=== PATIENT | male | born 1990 | race Two or more races ===

== ENCOUNTER 2019-01-28 18:56 | Emergency (ER) | payer BC ==
[2019-01-28] MEDS ORDERED: Sodium Chloride 0.9% 1,000 ML IV ONE (19:24)
[2019-01-28] MEDS ORDERED: Codeine/Promethazine 10-6.25 MG/5 ML Syrup 5 ML UD Cup PO STA (19:24)
--- NOTE | 2019-01-28 19:24 | EDM.PDOC ---
ED HPI GENERAL MEDICAL PROBLEM - General Chief Complaint: Respiratory Problem Stated Complaint: PT HAS DIFFICULTY BREATHING Time Seen by Provider: 01/28/19 19:16 Source of Information: Reports: Patient History Limitations: Reports: No Limitations - History of Present Illness INITIAL COMMENTS - FREE TEXT/NARRATIVE: HISTORY AND PHYSICAL: History of present illness: Patient is a 29-year-old male who presents to the emergency room today with complaints of productive cough, generalized fatigue, diarrhea and nausea 1 week. He states that multiple coworkers have been sick and is concerned he has been exposed. Patient has had subjective fever and states he feels like he is "getting night sweats" over the past 2-3 days. Patient denies any headache, change in vision, syncope or near syncope. Denies any chest pain, back pain, shortness of breath. Denies any abdominal pain, vomiting, constipation or dysuria. Has not noted any blood in urine or stool. Patient has been eating and drinking appropriately. No previous history of any respiratory illness ( childhood asthma) and he does not smoke. Review of systems: As per history of present illness and below otherwise all systems reviewed and negative. Past medical history: As per history of present illness and as reviewed below otherwise noncontributory. Surgical history: As per history of present illness and as reviewed below otherwise noncontributory. Social history: See social history for further information Family history: As per history of present illness and as reviewed below otherwise noncontributory. Physical exam: General: Well-developed and well-nourished 29-year-old male. Alert and oriented. Nontoxic appearing and in no acute distress. Vital signs have been reviewed by me, he does have a fever with tachycardia/tachypnea. HEENT: Atraumatic, normocephalic, pupils equal and reactive bilaterally, negative for conjunctival pallor or scleral icterus, mucous membranes moist, TMs normal bilaterally, throat clear, neck supple, nontender, trachea midline. No drooling or trismus noted. No meningeal signs. No hot potato voice noted. Lungs: Diminished bases otherwise clear to auscultation, breath sounds equal bilaterally, chest nontender. Loose productive cough is noted Heart: S1S2, regular rate and rhythm without overt murmur Abdomen: Soft, nondistended, nontender. Negative for masses or hepatosplenomegaly. Negative for costovertebral tenderness. Pelvis: Stable nontender. Skin: Intact, warm, dry. No lesions or rashes noted. Extremities: Atraumatic, moves all extremities per self without difficulty or deficits, negative for cords or calf pain. Neurovascular unremarkable. Neuro: Awake, alert, oriented. Cranial nerves II through XII unremarkable. Cerebellum unremarkable. Motor and sensory unremarkable throughout. Exam nonfocal. Notes: Due to patient's vital signs they will have labs being drawn at this time Patient does have an elevated WBC. CXR shows bronchial wall thickening with minimal reticular nodular prominence in the hilar regions suggestive of a bronchitis/bronchiolitis. Due to patient's symptoms will treat for pneumonia. All findings were shared with the patient and at bedside. Admission was offered. Risks versus benefits were reviewed and discussed with patient and . He would like to be discharged to home and accepts risks of discharge. He states he'll return to the emergency room if his symptoms do not improve or new symptoms develop. Otherwise he states he'll follow-up with the primary care provider tomorrow. Home medications were reviewed and discussed with patient. Encouraged him to drink plenty of fluids and get plenty of rest. May start medications tomorrow. Diagnostics: Influenza, strep screening, 2 view chest Therapeutics: IV fluids, Rocephin, Solu-Medrol, Tylenol Rx: Levaquin 750mg x 5 days Medrol Dosepak Pro-Air Impression: Pneumonia Plan: 1. If at anytime if symptoms become worse, new symptoms develop or you change your mind on admission - please return to the emergency room 2. Fill your prescriptions and take as directed. You may start the antibiotic orally tomorrow. 3. Please follow-up with your her very care provider for reevaluation in the next 24-48 hours. 4. Increase her fluids to prevent dehydration (fever and high pulse can cause you to become dehydrated). 5. Return to the ED as needed and as discussed. Definitive disposition and diagnosis as appropriate pending reevaluation and review of above. - Related Data Allergies Allergy/AdvReac Type Severity Reaction Status Date / Time No Known Allergies Allergy Verified 01/28/19 19:31 Home Meds: Home Meds . [No Known Home Meds] 01/28/19 [History] ED ROS GENERAL - Review of Systems Review Of Systems: ROS reveals no pertinent complaints other than HPI. ED EXAM, GENERAL - Physical Exam Exam: See Below (See dictation) Course - Vital Signs Last Recorded V/S: Last Vital Signs Temp 100.4 F 01/28/19 20:29 Pulse 116 H 01/28/19 20:29 Resp 30 H 01/28/19 20:29 BP 164/91 H 01/28/19 19:18 Pulse Ox 93 L 01/28/19 20:29 - Orders/Labs/Meds Orders: Active Orders 24 hr Category Date Time Status RT Aerosol Therapy [RC] ASDIRECTED Care 01/28/19 20:08 Active CULTURE BLOOD [BC] Stat Lab 01/28/19 19:40 Received CULTURE BLOOD [] Stat Lab 01/28/19 19:50 Results CULTURE STREP A CONFIRMATION [] Stat Lab 01/28/19 19:15 Results STREP SCRN A RAPID W CULT CONF [] Stat Lab 01/28/19 19:15 Results Acetaminophen [Tylenol Extra Strength] Med 01/28/19 21:15 Once 1,000 mg PO ONETIME ONE methylPREDNISolone Sod Succ [Solu-MEDROL] Med 01/28/19 21:15 Once 125 mg IVPUSH ONETIME ONE Blood Culture x2 Reflex Set [OM.PC] Stat Oth 01/28/19 19:25 Ordered Labs: Laboratory Tests 01/28/19 01/28/19 Range/Units 19:40 19:40 WBC 14.29 H (4.0-11.0) K/uL RBC 5.08 (4.50-5.90) M/uL Hgb 15.9 (13.0-17.0) g/dL Hct 45.7 (38.0-50.0) % MCV 90.0 (80.0-98.0) fL MCH 31.3 (27.0-32.0) pg MCHC 34.8 (31.0-37.0) g/dL RDW Std Deviation 39.0 (28.0-62.0) fl RDW Coeff of Alycia 12 (11.0-15.0) % Plt Count 253 (150-400) K/uL MPV 9.80 (7.40-12.00) fL Neut % (Auto) 78.6 (48.0-80.0) % Lymph % (Auto) 10.4 L (16.0-40.0) % [place] % (Auto) 7.3 (0.0-15.0) % Eos % (Auto) 3.4 (0.0-7.0) % Baso % (Auto) 0.3 (0.0-1.5) % Neut # (Auto) 11.3 H (1.4-5.7) K/uL Lymph # (Auto) 1.5 (0.6-2.4) K/uL [place] # (Auto) 1.0 H (0.0-0.8) K/uL Eos # (Auto) 0.5 (0.0-0.7) K/uL Baso # (Auto) 0.0 (0.0-0.1) K/uL Nucleated RBC % 0.0 /100WBC Nucleated RBCs # 0 K/uL Sodium 137 (136-148) mmol/L Potassium 3.9 (3.5-5.1) mmol/L Chloride 99 (98-107) mmol/L Carbon Dioxide 25.7 (21.0-32.0) mmol/L BUN 10 (7.0-18.0) mg/dL Creatinine 1.1 (0.8-1.3) mg/dL Est Cr Clr Drug Dosing TNP Estimated GFR (MDRD) > 60.0 ml/min Glucose 107 H (74-106) mg/dL Calcium 8.7 (8.5-10.1) mg/dL Total Bilirubin 0.7 (0.2-1.0) mg/dL AST 25 (15-37) IU/L ALT 33 (14-63) IU/L Alkaline Phosphatase 107 (46-116) U/L Total Protein 8.7 H (6.4-8.2) g/dL Albumin 3.6 (3.4-5.0) g/dL Globulin 5.1 H (2.6-4.0) g/dL Albumin/Globulin Ratio 0.7 L (0.9-1.6) Meds: Medications Discontinued Medications Generic Name Dose Route Start Last Admin Trade Name Freq PRN Reason Stop Dose Admin Albuterol/Ipratropium 3 ml 01/28/19 20:07 01/28/19 20:28 Duoneb 3.0-0.5 Mg/3 Ml NEB 01/28/19 20:08 3 ml ONETIME ONE Administration Sodium Chloride 1,000 mls @ 999 mls/hr 01/28/19 19:24 01/28/19 19:52 Normal Saline IV 01/28/19 20:24 999 mls/hr STAT ONE Administration Ceftriaxone Sodium/Dextrose 1 50 mls @ 100 mls/hr 01/28/19 19:53 01/28/19 20: 27 gm/ Premix IV 01/28/19 20:22 100 mls/hr ONETIME ONE Administration Promethazine HCl/Codeine 10 ml 01/28/19 19:24 01/28/19 19:52 Phenergan With Codeine PO 01/28/19 19:25 10 ml NOW STA Administration Departure - Departure Time of Disposition: 21:13 Disposition: Home, Self-Care 01 Clinical Impression: Pneumonia Qualifiers: Pneumonia type: due to unspecified organism Laterality: bilateral Lung location : unspecified part of lung Qualified Code(s): J18.9 - Pneumonia, unspecified organism - Discharge Information Instructions: Community-Acquired Pneumonia, Adult, [id number] Referrals: PCP,None [Primary Care Provider] - Forms: ED Department Discharge Additional Instructions: The following information is given to patients seen in the emergency department who are being discharged to home. This information is to outline your options for follow-up care. We provide all patients seen in our emergency department with a follow-up referral. The need for follow-up, as well as the timing and circumstances, are variable depending upon the specifics of your emergency department visit. If you don't have a primary care physician on staff, we will provide you with a referral. We always advise you to contact your personal physician following an emergency department visit to inform them of the circumstance of the visit and for follow-up with them and/or the need for any referrals to a consulting specialist. The emergency department will also refer you to a specialist when appropriate. This referral assures that you have the opportunity for follow-up care with a specialist. All of these measure are taken in an effort to provide you with optimal care, which includes your follow-up. Under all circumstances we always encourage you to contact your private physician who remains a resource for coordinating your care. When calling for follow-up care, please make the office aware that this follow-up is from your recent emergency room visit. If for any reason you are refused follow-up, please contact the [facility] Emergency Department at and asked to speak to the emergency department charge nurse. MINI [facility] [address] [place] [address] [facility] [address] [place] [address] 1. If at anytime if symptoms become worse, new symptoms develop or you change your mind on admission - please return to the emergency room 2. Fill your prescriptions and take as directed. You may start the antibiotic orally tomorrow. 3. Please follow-up with your her very care provider for reevaluation in the next 24-48 hours. 4. Increase her fluids to prevent dehydration (fever and high pulse can cause you to become dehydrated). 5. Return to the ED as needed and as discussed. - My Orders Last 24 Hours: My Active Orders 01/28/19 19:15 CULTURE STREP A CONFIRMATION [RM] Stat STREP SCRN A RAPID W CULT CONF [RM] Stat 01/28/19 19:25 Blood Culture x2 Reflex Set [OM.PC] Stat 01/28/19 19:40 CULTURE BLOOD [BC] Stat 01/28/19 19:50 CULTURE BLOOD [BC] Stat 01/28/19 20:08 RT Aerosol Therapy [RC] ASDIRECTED 01/28/19 21:15 Acetaminophen [Tylenol Extra Strength] 1,000 mg PO ONETIME ONE methylPREDNISolone Sod Succ [Solu-MEDROL] 125 mg IVPUSH ONETIME ONE - Assessment/Plan Last 24 Hours: My Active Orders 01/28/19 19:15 CULTURE STREP A CONFIRMATION [RM] Stat STREP SCRN A RAPID W CULT CONF [RM] Stat 01/28/19 19:25 Blood Culture x2 Reflex Set [OM.PC] Stat 01/28/19 19:40 CULTURE BLOOD [BC] Stat 01/28/19 19:50 CULTURE BLOOD [BC] Stat 01/28/19 20:08 RT Aerosol Therapy [RC] ASDIRECTED 01/28/19 21:15 Acetaminophen [Tylenol Extra Strength] 1,000 mg PO ONETIME ONE methylPREDNISolone Sod Succ [Solu-MEDROL] 125 mg IVPUSH ONETIME ONE
[2019-01-28] MEDS ORDERED: cefTRIAXone 1 GM in Premix Bag 1 BAG IV ONE (19:53)
[2019-01-28] MEDS ORDERED: Albuterol/Ipratropium 3.0-0.5 MG/3 ML Neb Soln NEB ONE (20:07)
[2019-01-28 20:13] LABS: BLOOD UREA NITROGEN,BUN 10 mg/dL (7.0-18.0); CARBON DIOXIDE,CO2 25.7 mmol/L (21.0-32.0); CHLORIDE,CL 99 mmol/L (98-107); GLUCOSE RANDOM 107 mg/dL (74-106); POTASSIUM,K 3.9 mmol/L (3.5-5.1); SODIUM,NA 137 mmol/L (136-148)
--- NOTE | 2019-01-28 20:14 | CR ---
Indication: Cough for 1 week Technique: Chest 2 views Comparison: None Findings: Cardiovascular and mediastinum: Heart size and vasculature are normal in caliber and appearance. Lungs and pleural spaces: No pleural effusion or pneumothorax. Slight bronchial wall thickening with minimal reticular nodular prominence in the hilar regions. Bones and soft tissues: No significant findings. Impression: Bronchial wall thickening with minimal reticular nodular prominence in the hilar regions suggestive of a bronchitis/bronchiolitis. Dictated by Barrera Morejon MD @ Jan 28 2019 8:12PM Signed by Dr. Barrera Morejon @ Jan 28 2019 8:13PM
[2019-01-28] MEDS ORDERED: Acetaminophen 500 MG Tab PO ONE (21:15)
[2019-01-28] MEDS ORDERED: methylPREDNISolone Sodium Succinate 125 MG/2 ML SDV IVPUSH ONE (21:15)
== END 2019-01-28 21:35 | disposition home or self-care (01) ==
LOC: MW.ED 18:56
DX: J18.9 Pneumonia, unspecified organism (principal)
CPT/HCPCS: 36415; 71046; 80053; 85025; 87040; 87081; 87804; 87880; 94640; 96361; 96365; 96375; 99284; A9270; J0696; J2930; J7040; 99283; J7620-GY